=== PATIENT | female | born 1975 | race Caucasian/White ===

== ENCOUNTER 2023-06-11 09:20 | Emergency (ER) | payer SELFPAY ==
[~2023-06-11] VITALS: Ht 142.2 cm; Wt 68.0 kg
[2023-06-11 09:36] VITALS: BP 130/108; PULSE 98; RESP 18; TEMP 99; O2SAT 99
[2023-06-11 09:57] LABS: CLARITY URINE CLOUDY (CLEAR); COLOR URINE DARK YELLOW (YELLOW); KETONES URINE TRACE (NEGATIVE); LEUKOCYTE ESTERASE URINE NEGATIVE (NEGATIVE); NITRITE URINE NEGATIVE (NEGATIVE); OCCULT BLOOD URINE 2+ (NEGATIVE); PROTEIN URINE 1+ (NEGATIVE); SPECIFIC GRAVITY URINE 1.021 (1.005-1.030); UROBILINOGEN URINE 0.2 E.U./dL (0.2-1.0)
[2023-06-11 09:58] LABS: BASOPHILS % 0.5 % (0.0-2.0); EOSINOPHILS % 0.2 % (0.0-5.0); HEMATOCRIT. 39.8 % (36.0-48.0); HEMOGLOBIN. 13.8 g/dL (12.0-16.0); LYMPHOCYTES % 12.1 % (20.0-50.0); MEAN CORPUSCULAR HEMOGLOBIN 30.3 pg (28.0-32.0); MEAN CORPUSCULAR VOLUME 87.4 fL (81.0-99.0); MEAN PLATELET VOLUME 7.5 fl (7.4-10.4); NEUTROPHILS % 79.2 % (40.0-76.0); PLATELET 305 x1000/uL (130-400); RED BLOOD CELL COUNT 4.55 mill/uL (4.2-5.4); RED CELL DISTRIBUTION WIDTH 12.8 % (11.6-14.6)
[2023-06-11] MEDS ORDERED: ONDANSETRON 4MG ODT PO ONE (10:00)
[2023-06-11] MEDS ORDERED: ACETAMINOPHEN 325MG TABLET PO ONE (10:00)
[2023-06-11] MEDS ORDERED: FAMOTIDINE 20MG TABLET PO ONE (10:00)
[2023-06-11 10:08] LABS: CHLORIDE 109 mEq/L (98-107)
[2023-06-11 10:12] LABS: HCG SCREEN NEGATIVE
[2023-06-11] MEDS ORDERED: FAMO-135 MT (11:29)
[2023-06-11] MEDS ORDERED: LOPE1TAB46 MT (11:29)
[2023-06-11] MEDS ORDERED: ONDA4TAB50 MT (11:29)
[2023-06-11] MEDS ORDERED: FAMOTIDINE 20MG TABLET PO NR (12:00)
[2023-06-11] MEDS ORDERED: ACETAMINOPHEN 325MG TABLET PO NR (12:00)
[2023-06-11] MEDS ORDERED: ONDANSETRON 4MG ODT PO NR (12:00)
== END 2023-06-11 12:14 | disposition home or self-care (01) ==
LOC: ER 09:20
DX: K52.9 Noninfective gastroenteritis and colitis, unspecified (principal); Z20.822 Contact with and (suspected) exposure to COVID-19
CPT/HCPCS: 99284; 87426; 80053; 81003; 84703; 83690; 85025; 84484; 87804 ×2; 36415; 93005; Q0162; C9803